=== PATIENT | female | born 1990 | race Caucasian/White ===

== ENCOUNTER → 2017-05-06 | Outpatient (CLI) | payer BC ==
[2017-05-06 14:38] LABS: URINE APPEARANCE CLEAR (CLEAR); URINE BILIRUBIN NEG (NEG); URINE COLOR YELLOW; URINE EPITHELIAL CELL AUTO >30 /lpf (0-5); URINE NITRITE NEG (NEG); URINE PH 7.5 (4.5-7.5); URINE SPECIFIC GRAVITY 1.021 (1.000-1.030); UROBILINOGEN NEG (NEG)
[2017-05-06 14:41] LABS: MANUAL MICROSCOPIC REQUIRED? NO; REVIEW REQ? NO
[2017-05-09 00:34] LABS: CHLAMYDIA TRACH RNA*** NOT DETECTED (NOT DETECTED); GC (NEIS GONORRHOEAE)RNA** NOT DETECTED (NOT DETECTED)
== END | disposition home or self-care (01) ==
LOC: C.LABSPEC 13:39
PROVIDERS: ATTEND Obstetrics & Gynecology
DX: Z34.81 Encounter for supervision of other normal pregnancy, first trimester (principal)

== ENCOUNTER → 2017-05-06 | Outpatient (CLI) | payer BC ==
[2017-05-06 12:19] LABS: BASO % 0.2 %; BASO ABS # 0.02 K/uL (0-0.2); COMPLETE YES; EOS % 3.5 %; HEMATOCRIT 37.4 % (37-47); IG% 0.3 %; LYMPH % 13.8 %; MEAN CELL VOLUME 83.5 fL (80-100); MEAN CORPUSCULAR HEMOGLOBIN 29.2 pg (25-34); MEAN PLATELET VOLUME 9.5 fL (7.4-10.4); MONO % 5.7 %; NEUT % 76.5 %; PLATELET COUNT 278 K/uL (130-400); RED BLOOD COUNT 4.48 M/uL (4.2-5.4); WHITE BLOOD COUNT 10.13 K/uL (4.8-10.8)
== END | disposition home or self-care (01) ==
LOC: C.LAB1850 10:44
PROVIDERS: ATTEND Obstetrics & Gynecology
DX: Z34.81 Encounter for supervision of other normal pregnancy, first trimester (principal)

== ENCOUNTER → 2017-09-20 | Outpatient (CLI) | payer BC ==
[2017-09-20 18:01] LABS: HEMATOCRIT 36.1 % (37-47); HEMOGLOBIN 12.3 g/dL (12.0-16.0)
[2017-09-20 18:26] LABS: ALBUMIN 2.6 gm/dl (3.4-5.0); ALT/SGPT 15 U/L (12-78); AST/SGOT 11 U/L (15-37); BLOOD UREA NITROGEN 6 mg/dl (7-18); CALCIUM 8.6 mg/dl (8.5-10.1); CARBON DIOXIDE 24 mmol/L (21-32); CREATININE 0.61 mg/dl (0.60-1.20); GLUCOSE 161 mg/dl (70-99); POTASSIUM 3.7 mmol/L (3.5-5.1); SODIUM 136 mmol/L (136-145)
[2017-09-20 18:31] LABS: ALKALINE PHOSPHATASE 88 U/L (45-117); TOTAL PROTEIN 6.9 gm/dl (6.4-8.2)
== END | disposition home or self-care (01) ==
LOC: C.LAB 17:09
PROVIDERS: ATTEND Obstetrics & Gynecology
DX: O26.13 Low weight gain in pregnancy, third trimester (principal); Z3A.00 Weeks of gestation of pregnancy not specified

== ENCOUNTER → 2017-09-28 | Outpatient (CLI) | payer BC | END | disposition home or self-care (01) | LOC: C.LAB 07:15 | PROVIDERS: ATTEND Obstetrics & Gynecology | DX: O28.1 Abnormal biochemical finding on antenatal screening of mother (principal); Z3A.00 Weeks of gestation of pregnancy not specified ==

== ENCOUNTER → 2017-11-12 | Outpatient (CLI) | payer BC | END | disposition home or self-care (01) | LOC: C.LABSPEC 17:29 | PROVIDERS: ATTEND Obstetrics & Gynecology | DX: Z34.83 Encounter for supervision of other normal pregnancy, third trimester (principal); Z3A.00 Weeks of gestation of pregnancy not specified ==

== ENCOUNTER 2017-12-06 23:07 | Inpatient (IN) | payer BC ==
[~2017-12-06] VITALS: Ht 160 cm; Wt 80.0 kg
[2017-12-06] MEDS ORDERED: LACTATED RINGER'S 1000ML 1,000 ML IV PRN (23:58)
[2017-12-06] MEDS ORDERED: LACTATED RINGER'S 1000ML 1,000 ML IV SCH (23:58)
[2017-12-07] MEDS ORDERED: FENTANYL CITRATE INJ 50 MCG/1 ML 2 ML VIAL ONE (00:20)
[2017-12-07] MEDS ORDERED: BUPIVACAINE 0.25% 30 ML VIAL ONE (00:20)
[2017-12-07] MEDS ORDERED: EpHEDrine SULFATE INJ 50 MG/ML AMP ONE (00:20)
[2017-12-07] MEDS ORDERED: FENTANYL 2MCG/ML ROPIV 1.25MG/ML 100ML BAG EPI ONE (00:21)
[2017-12-07 00:24] LABS: HEMATOCRIT 36.6 % (37-47); HEMOGLOBIN 12.9 g/dL (12.0-16.0); MEAN CELL VOLUME 84.1 fL (80-100); MEAN CORPUSCULAR HEMOGLOBIN 29.7 pg (25-34); MEAN CORPUSCULAR HGB CONC 35.2 g/dl (32-36); MEAN PLATELET VOLUME 9.3 fL (7.4-10.4); PLATELET COUNT 212 K/uL (130-400); RED CELL DISTRIBUTION WIDTH CV 13.5 % (11.5-14.5); RED CELL DISTRIBUTION WIDTH SD 40.6 fL (36.4-46.3); WHITE BLOOD COUNT 17.14 K/uL (4.8-10.8)
[2017-12-07] MEDS ORDERED: PATIENT'S ALLERGY INFO NEEDS ENTERED SCH (01:15)
[2017-12-07] MEDS ORDERED: NALOXONE HCL INJ 1 MG in SODIUM CHLORIDE 0.9% 1000ML 1,000 ML IV PRN (01:42)
[2017-12-07] MEDS ORDERED: LACTATED RINGER'S 1000ML 500 ML IV PRN (01:42)
[2017-12-07] MEDS ORDERED: DiphenhydrAMINE HCL 50 MG/ML VIAL IV PRN (01:45)
[2017-12-07] MEDS ORDERED: ONDANSETRON INJ 2 MG/ML 2 ML VIAL IV PRN (01:45)
[2017-12-07] MEDS ORDERED: NALBUPHINE HCL INJ 10 MG/ML AMP IV PRN (01:45)
[2017-12-07] MEDS ORDERED: NALOXONE HCL INJ 0.4 MG/1 ML VIAL/CARP IV PRN (01:45)
[2017-12-07] MEDS ORDERED: FENTANYL 2MCG/ML ROPIV 1.25MG/ML 100ML BAG EPI PRN (01:45)
[2017-12-07] MEDS ORDERED: EpHEDrine SULFATE INJ 50 MG/ML AMP IV PRN (01:45)
[2017-12-07 02:53] VITALS: Ht 160 cm; Wt 80.0 kg
[2017-12-07] MEDS ORDERED: PRENTAB26 PO (03:00)
[2017-12-07] MEDS ORDERED: CETI10TA84 PO (03:02)
[2017-12-07] MEDS ORDERED: MOME100A INH (03:04)
[2017-12-07] MEDS ORDERED: OXYTOCIN 30 UNITS/500ML NSS IV ONE (03:45)
[2017-12-07] MEDS ORDERED: ACETAMINOPHEN 325 MG TAB PO PRN (04:30)
[2017-12-07] MEDS ORDERED: ACETAMINOPHEN/CODEINE 300/30MG TAB PO PRN ×2 (04:30)
[2017-12-07] MEDS ORDERED: BENZOCAINE 20% AER SPR 82.5 GM CAN EXT PRN (04:30)
[2017-12-07] MEDS ORDERED: HYDROCORTISONE ACETATE 25 MG SUPP PR PRN (04:30)
[2017-12-07] MEDS ORDERED: OXYTOCIN 30 UNITS/500ML NSS IV PRN (04:30)
[2017-12-07] MEDS ORDERED: SUPERCREAM 0.870 % 15GM JAR EXT PRN (04:30)
[2017-12-07] MEDS ORDERED: LANOLIN OINT EXT PRN (04:30)
--- NOTE | 2017-12-07 04:44 | DELIVERY SUMMARY ---
DATE OF OPERATION: 12/07/2017 FINDINGS: Viable female with Apgars of 8 and 9. Baby delivered spontaneously over midline second degree laceration. Cord blood samples obtained. Placenta delivered spontaneously. Laceration repaired with 4-0 Vicryl in routine fashion. Estimated blood loss 300 mL. LABOR NOTE: The patient is a 27-year-old 2, para 1 with an EDC of 12/09/2017 at 39+ weeks gestational age who was admitted with complaints of contractions. The patient states that the contractions began approximately 1800 hours on the 06 of December. She did not have rupture of membranes or vaginal bleeding. course was remarkable for poor weight gain in the . She gained only 9 pounds for the . Growth scan at 32 weeks showed an estimated weight at 21st percentile. Lab values for the showed blood type of A+, antibody negative, rubella immune, hepatitis B negative. She declined cell free DNA testing as well as maternal serum AFP. She had an elevated 1-hour Glucola at 28 weeks with a normal 2-hour glucose tolerance test. She had a negative third trimester beta strep culture. Upon admission, the patient was thought to be 5 cm dilated, 90% effaced and -2 station. Tracing was category 1. Anesthesia was consulted and an epidural was placed. Following placement of the epidural, the patient had artificial rupture of membranes for clear fluid. Over the next several hours, the patient progressed to full dilatation and began her second state. She pushed for less than 30 minutes delivering the viable female infant. Cord was clamped and cut. Cord blood sample was obtained. Placenta was delivered spontaneously. Midline laceration was repaired with 4-0 Vicryl in routine fashion. Estimated blood loss 300 mL. Sponge and needle count was correct. I attest to the content of the Intraoperative Record and any orders documented therein. Any exception s are noted below.
--- NOTE | 2017-12-07 05:53 | Anesthesia Procedure Note ---
Anesthesia Epidural Removal Nt Date & Time Dec 07, 2017 at 05:53 Vital Signs Pain Intensity: 0.0 Notes Mental Status: alert / awake / arousable, participated in evaluation Nausea / Vomiting: adequately controlled Pain: adequately controlled Airway Patency, RR, SpO2: stable & adequate BP & HR: stable & adequate Hydration State: stable & adequate Neuraxial Anesthesia: was administered Anesthetic Complications: no major complications apparent, pt satisfied with anesthetic care Epidural: removed without complications, with tip intact
[2017-12-07] MEDS ORDERED: HYDROCORTISONE 2.5% CR 30 GM TUBE EXT PRN (07:30)
--- NOTE | 2017-12-07 08:09 | Progress Note ---
Subjective Dec 07, 2017. Subjective conversation w/ patient, physical exam Ambulation: limited ambulation Voiding: no voiding problems Passing Gas: No Diet Tolerance: Regular Diet Lochia: Small (Patient unsure of lochia, states looking at blood makes her pass out; does not report saturation of pads yet) Feeding Type: Breast Feeding Pain: Cramping at this time Comment: Patient delivered early this AM, has since reported rash on back from where anesthesia tape was applied Review of Systems ROS grossly normal aside from itching rash across back. Objective Physical Exam General Appearance: NO APPARENT DISTRESS Respiratory/Chest: lungs clear, normal breath sounds, + pertinent finding ( petechial rash in square and rectangular pattern on back of patient. allergic dermatitis in appearance. No raised wheals, not warm to touch, no blanching. Confluent flat, reddened area on upper left back measuring approximately 3 cm wide x 10 cm long. Epidural site unaffected.) Cardiovascular: regular rate, rhythm, no edema, no murmur Abdomen: non tender, soft Fundus: Firm, Non-Tender, Relation to Umbilicus (1-2 below) Extremities: normal range of motion, non-tender, normal inspection, no pedal edema, no calf tenderness Laboratory Results Last 24 Hours Test 12/07/17 00:10 White Blood Count 17.14 K/uL Red Blood Count 4.35 M/uL Hemoglobin 12.9 g/dL Hematocrit 36.6 % Mean Corpuscular Volume 84.1 fL Mean Corpuscular Hemoglobin 29.7 pg Mean Corpuscular Hemoglobin Concent 35.2 g/dl RDW Standard Deviation 40.6 fL RDW Coefficient of Variation 13.5 % Platelet Count 212 K/uL Mean Platelet Volume 9.3 fL Medications Current Inpatient Medications Medications (Trade) Dose Ordered Sig/Valeriano Route Start Time Stop Time Status Last Admin Dose Admin Lactated Ringer's 1,000 ml @ 125 mls/hr Q8H IV 12/06/17 23:58 12/08/17 23:57 12/07/17 01:31 125 MLS/HR Lactated Ringer's 1,000 ml @ 999 mls/hr Q1H1M PRN IV 12/06/17 23:58 01/05/18 23:57 12/07/17 01:11 999 MLS/HR Oxytocin (Pitocin IV) 30 units UD PRN IV 12/07/17 04:30 01/06/18 04:29 Benzocaine (Dermoplast Aero Spr) 1 appln PRN PRN EXT 12/07/17 04:30 01/06/18 04:29 Cocaine HCl (Supercream 0.870% Cr) BID PRN EXT 12/07/17 04:30 12/21/17 04:29 Hydrocortisone Acetate (Anusol Hc Supp) 25 mg BID PRN OR 12/07/17 04:30 01/06/18 04:29 Lanolin (Lanolin Oint) PRN PRN EXT 12/07/17 04:30 01/06/18 04:29 Prenat Multivit/ Tow Truck Operator/Iron/Folic Ac ( Vitamin Tab) 1 tab DAILY PO 12/07/17 08:00 01/06/18 07:59 Ibuprofen (Motrin Tab) 600 mg Q4H PRN PO 12/07/17 04:30 01/06/18 04:29 Acetaminophen (Tylenol Tab) 650 mg Q6H PRN PO 12/07/17 04:30 01/06/18 04:29 Acetaminophen/ Codeine Phosphate (Tylenol w/ Codeine #3 Tab) 1 tab Q4H PRN PO 12/07/17 04:30 01/06/18 04:29 Acetaminophen/ Codeine Phosphate (Tylenol w/ Codeine #3 Tab) 2 tab Q4H PRN PO 12/07/17 04:30 01/06/18 04:29 Bisacodyl (Dulcolax Tab) 5 mg 20 PO 12/08/17 20:00 12/08/17 20:01 Docusate Sodium (coLACE CAP) 100 mg BID PO 12/07/17 08:00 01/06/18 07:59 Diphtheria/ Pertussis/Tetanus Vacc (Adacel Inj) 0.5 ml ONCE ONCE IM. 12/08/17 09:00 12/08/17 09:01 Ferrous Sulfate (Feosol Tab) 325 mg DAILY PO 12/07/17 08:00 01/06/18 07:59 Hydrocortisone (Hydrocortisone 2.5% Crm) 1 appln QID PRN EXT 12/07/17 07:30 01/06/18 07:29 Assessment and Plan Post- Day#: 0 Continue Routine Care: 27 yo F PPD 1 s/p Pt doing well clinically aside from allergic reaction to tape on back Hydrocortisone cream 2.5% qid for itching. Continue to monitor. Continue routine care Resident Physician Supervision Note: I interviewed and examined the patient. Discussed with Dr. Ortega and agree with findings and plan as documented in the note. Any exceptions or clarifications are listed here: Tape reaction from epidural, topical hydrocortisone Documented By: Byron Klein Resident Tracking Resident Involvement: Resident Care Provided Care Provided: OB Delivery
[2017-12-07 08:15] VITALS: BP 120/82; PULSE 90; TEMP 36.6
[2017-12-07] MEDS: PRENATAL VITAMIN TAB PO SCH (08:18)
[2017-12-07] MEDS: FERROUS SULFATE 325 MG TAB PO SCH (08:18)
[2017-12-07] MEDS: DOCUSATE SODIUM 100 MG CAP PO SCH ×2 (08:18→19:57)
[2017-12-07 12:01] VITALS: BP 112/73; PULSE 96; TEMP 36.6
[2017-12-07] MEDS: IBUPROFEN 600 MG TAB PO PRN ×2 (14:02→19:56)
--- NOTE | 2017-12-07 14:54 | Discharge Instructions ---
Discharge Instructions Date of Service Dec 07, 2017. Admission Reason for Admission: Supervision Of Normal Intrauterine Discharge Discharge Diagnosis / Problem: recovery from normal delivery Discharge Goals Goal(s): Routine recovery after delivery Medications Continue Dispensed Medications: supercream, dermaplast, tucks, lansinoh Activity Recommendations Activity Limitations: per Instructions/Follow-up section . Instructions / Follow-Up Instructions / Follow-Up ACTIVITY RECOMMENDATIONS: * Gradual return to full activity over the next 2-3 weeks. * No lifting - nothing heavier than baby over the next 2-3 weeks. * Do not engage in vigorous exercise, sexual activity or sports until cleared by your physician. * Do not drive or operate any motorized equipment until cleared by your physician. * You may shower/bathe daily. MEDICATIONS: For discomfort or pain, you may use Acetaminophen (Tylenol), Ibuprofen (Advil), or Naproxen (Aleve) following the package directions. For constipation you may use Colace following the package directions. BREAST CARE: If you are not breast feeding: * Wear a supportive bra 24 hours a day for one to two weeks. * Avoid stimulating your breasts and nipples as much as possible during the first few weeks after delivery. * When taking a shower, have the warm water hit your back, not breasts. * When your breasts feel full, apply ice packs. Usually three to four times a day helps ease the discomfort. * Take a mild pain medication (Tylenol / Motrin) when you are uncomfortable. If breast feeding: * Use breast milk to lubricate nipples. Lansinoh cream may be used for sore nipples. You do not need to remove cream prior to breast feeding. If using a different brand of cream, check the label for directions regarding removal of cream prior to nursing. * Wear a supportive bra. * If having problems with breasts or breast feeding, call a incident response consultant or your health care provider. EPISIOTOMY CARE: After delivery, if you have an episiotomy (stitches), the following steps will ease discomfort and aid healing. * For the first 24 hours after delivery, place ice packs next to your episiotomy to help reduce swelling. * After the first 24 hour-period, sitz baths, either portable or in the tub, are suggested. A shower with a shower arm sprayed over the episiotomy may be comforting. * Emy care should be done after each voiding and bowel movement. Squirt warm water from a plastic bottle over the perineum (region of the body between the anus and urinary opening) and pat dry. * Use Dermoplast to ease discomfort. Shake container. [place] directly over the episiotomy. Place a Tucks on a clean sanitary pad next to your episiotomy. SPECIAL CARE INSTRUCTIONS: When you are discharged from the hospital, it is important for you to follow the instructions listed below: * During the first week at home, you should be able to care for yourself and your baby. In addition, the usual light household activities are encouraged. * Limit your activities to the way you feel. Do not try to clean the house or move furniture. Be sensible. * If you actively engage in sports and have done so up until the time of your delivery, you may resume these activities as soon as you feel able. This may take up to one month or even longer. Use good judgment. * Continue to take your vitamins for at least six weeks after the of your baby. * Your diet need not be limited unless you were on a special diet before your delivery. Breast-feeding mothers need around 2500 calories per day and at least 64-80 ounces of fluid per day (8 to 10 glasses). * You should eat foods from the four major food groups. Crash diets or fad diets are to be avoided. Eating lean meats, fresh fruits and vegetables, low-fat dairy products, high fiber foods and a regular exercise program, will help you get back to your pre- weight without putting your health at risk. * Constipation is sometimes a problem after delivery. Take a mild laxative as needed. If breast feeding, Milk of Magnesia is acceptable to use. You may use a suppository or Fleets enema if no episiotomy. * A daily shower or tub bath is suggested. Be sure to thoroughly and gently dry the perineum. * A bloody vaginal discharge will usually continue until around four weeks post . A small amount of bleeding may continue for as long as six weeks. Vaginal discharge changes from the bright red bleeding after delivery to pink then brownish and finally yellowish-pink before becoming white and disappearing. * Bleeding may increase with activity. Your first period may come in 4-8 weeks. If you are breast feeding, your period may be delayed even longer. * [place] (sex) can begin whenever both you and your partner feel comfortable and do not have any form of genital infection. It is recommended that you wait at least six weeks for internal and external healing to occur. If you have questions, please talk to your health care practitioner. A condom should be used to prevent infection and . * Foreplay, gentle intercourse and lubrication is very important the first several times to prevent pain. A water-based lubricant such as K-Y jelly or Astroglide may be used. * If you have RH negative blood and your baby is RH positive, you will receive RHOGAM by injection prior to discharge. The nurse will give you a card to keep with you that has the date and place that you received RHOGAM after delivery. * During your care, you had a Rubella screen done to check for the presence of rubella antibodies in your blood. If your test was negative, you will receive a Rubella vaccine prior to discharge. This vaccine may cause a fever, soreness at the injection site and flu-like symptoms. If these symptoms persist, notify your health care practitioner. is not advised for one month after a Rubella vaccine. * Verbalizes understanding of car seat law as reviewed with patient nursing. * Car Seat hand-out given and reviewed with patient by nursing. * Shaken baby information reviewed with patient by nursing. Call you doctor if: * Heavy bleeding (saturating several pads an hour) or passing clots the size of your fist. * A fever >101 degrees F (38.3 degrees C) on two occasions four hours apart and /or chills. * Unusual pain in the pelvic or vaginal areas. * "Baby Blues" lasting longer than two weeks. If you have any questions or concerns, call your health care practitioner at . FOLLOW UP VISIT: * Please call the office at to schedule a 6 week examination. It is important you keep this appointment. It is important for you to make arrangements for either yearly or twice yearly check-ups thereafter. Current Hospital Diet Patient's current hospital diet: Regular OB Diet Discharge Diet Recommended Diet: Regular OB Diet Pending Studies Studies pending at discharge: no Medical Emergencies . Who to Call and When: Medical Emergencies: If at any time you feel your situation is an emergency, please call 911 immediately. . Non-Emergent Contact Non-Emergency issues call your: Electrical Subcontractor . . "Provider Documentation" section prepared by Pricila Hi. .
[2017-12-07 16:38] VITALS: BP 115/69; PULSE 82; TEMP 36.6
[2017-12-07 19:45] VITALS: BP 125/84; PULSE 87; TEMP 36.7; O2SAT 96
[2017-12-07 23:10] VITALS: BP 100/58; PULSE 77; TEMP 36.8; O2SAT 97
[2017-12-08 03:40] VITALS: BP 116/81; PULSE 93; TEMP 36.4; O2SAT 97
[2017-12-08] MEDS: IBUPROFEN 600 MG TAB PO PRN (03:43)
[2017-12-08 05:33] LABS: HEMOGLOBIN 11.6 g/dL (12.0-16.0)
[2017-12-08 07:50] VITALS: BP 119/89; PULSE 85; TEMP 36.4
[2017-12-08] MEDS: PRENATAL VITAMIN TAB PO SCH (08:35)
[2017-12-08] MEDS: FERROUS SULFATE 325 MG TAB PO SCH (08:35)
[2017-12-08] MEDS: DOCUSATE SODIUM 100 MG CAP PO SCH (08:35)
--- NOTE | 2017-12-08 08:45 | Progress Note ---
Subjective Dec 08, 2017. Subjective conversation w/ patient, physical exam Ambulation: ambulating normally Voiding: no voiding problems Passing Gas: Yes Diet Tolerance: Regular Diet Lochia: Small Feeding Type: Breast Feeding Comment: She had rash that was sore where tape was placed for epidural. now resolving with steroid cream Review of Systems Constitutional: No fever, No chills, No sweats, No weight loss, No weakness, No fatigue, No problem reported Breast: No see HPI, No breast lump, No change in shape, No nipple discharge, No breast pain, No problem reported Abdomen: No pain, No nausea, No vomiting, No diarrhea, No constipation, No GI bleeding, No problem reported Female : No see HPI, No dysuria, No urinary frequency, No hematuria, No incontinence, No abnormal vaginal bleeding, No vaginal discharge, No problem reported Objective Vital Signs Date Time Temp Pulse Resp B/P (MAP) Pulse Ox O2 Delivery O2 Flow Rate FiO2 12/08/17 07:52 Room Air 12/08/17 07:50 36.4 85 16 119/89 (99) Room Air 12/08/17 03:40 36.4 93 20 116/81 (93) 97 Room Air 12/07/17 23:10 36.8 77 16 100/58 (72) 97 Room Air 12/07/17 23:10 97 Room Air 12/07/17 19:45 36.7 87 18 125/84 (98) 96 Room Air 12/07/17 16:38 36.6 82 16 115/69 (84) Room Air 12/07/17 16:38 Room Air 12/07/17 12:04 Room Air 12/07/17 12:01 36.6 96 16 112/73 (86) Room Air Physical Exam General Appearance: WELL-APPEARING, NO APPARENT DISTRESS Abdomen: non tender, soft Fundus: Firm, Non-Tender, Relation to Umbilicus (2 below U) Extremities: no calf tenderness Laboratory Results Last 24 Hours Test 12/08/17 05:11 Hemoglobin 11.6 g/dL Hematocrit 34.0 % Assessment and Plan Post- Day#: 1 Continue Routine Care: stable course would like to go home if baby discharged. discharge to home follow up in 6 weeks
[2017-12-08] MEDS ORDERED: DIPHTHERIA/TETANUS/PERTUSSIS 0.5 ML SYR/VIAL IM. ONE (09:00)
[2017-12-08] MEDS ORDERED: BISACODYL 5 MG TABEC PO SCH (20:00)
== END 2017-12-08 10:16 | disposition home or self-care (01) | DRG 775 ==
LOC: C.OPB 23:07 → C.LD 23:07 → C.OPB 12-07 00:02 → C.MS4N 12-07 06:58
PROVIDERS: ADMIT Obstetrics & Gynecology; ATTEND Obstetrics & Gynecology
PROC: 0KQM0ZZ Repair Perineum Muscle, Open Approach (ICD-10-PCS; principal; 2017-12-07)
PROC: 10E0XZZ Delivery of Products of Conception, External Approach (ICD-10-PCS; principal; 2017-12-07)
DX: O36.5930 Maternal care for other known or suspected poor fetal growth, third trimester, not applicable or unspecified (principal); O26.13 Low weight gain in pregnancy, third trimester; O70.1 Second degree perineal laceration during delivery; O9A.23 Injury, poisoning and certain other consequences of external causes complicating the puerperium; T78.49XA Other allergy, initial encounter; Z3A.39 39 weeks gestation of pregnancy; Z37.0 Single live birth

== ENCOUNTER 2019-09-08 02:25 | Inpatient (IN) ==
[2019-09-08] MEDS ORDERED: OXYTOCIN 30 UNITS/500 ML BAG IV PRN ×2 (03:02→08:24)
[2019-09-08] MEDS: LACTATED RINGER'S 1,000 ML IV PRN ×2 (03:30→04:50)
[2019-09-08 03:31] LABS: Mean Corpuscular Hemoglobin 29.3 pg (25-34); Mean Corpuscular Volume 85.6 fL (80-100); Mean Platelet Volume 8.7 fL (7.4-10.4); Platelet Count 193 K/uL (130-400); RDW Coefficient of Variation 13.5 % (11.5-14.5); RDW Standard Deviation 41.9 fL (36.4-46.3); Red Blood Count 4.44 M/uL (4.2-5.4); White Blood Count 15.57 K/uL (4.8-10.8)
[2019-09-08] MEDS ORDERED: ePHEDrine sulfate 50 MG/ML AMP ONE (03:37)
[2019-09-08] MEDS ORDERED: fentaNYL citrate 100 MCG/2 ML VIAL ONE (03:37)
[2019-09-08] MEDS ORDERED: BUPIVACAINE 0.25% 30 ML VIAL ONE (03:37)
[2019-09-08 03:38] LABS: Mean Corpuscular Hgb Conc 34.2 g/dL (32-36)
[2019-09-08] MEDS ORDERED: fentaNYL 2MCG/ML ROPIV 1.25MG/ML 100 ML BAG EPI ONE (03:38)
--- NOTE | 2019-09-08 03:55 | Anesthesiology Consultation ---
Date of Service September 08, 2019 Assessment & Plan Chart Review Chart Review: Acceptable Risk for Surgery, Patient NOT seen in Pre Admission Testing and Acceptable Risk for Labor Epidural Consults Requested none ASA ASA2 Proposed Anesthesia Anesthesia Type: General, Labor Epidural and CSE Risk / Benefits Reviewed With: PT / POA / Parent / Guardian, Accepts Plan and Informed Consent Obtained History Height/Weight Height: 5 ft 3 in Weight: 85.275 kg Allergies Allergy/AdvReac Type Severity Reaction Status Date / Time amoxicillin Allergy Severe HIVES Verified 09/07/19 15:27 Medications Home Medications Medication Instructions Recorded Confirmed Last Taken albuterol sulfate 90 mcg/actuation 1 puff INHALATION DIRECTED gm 04/07/19 09/08/19 Unknown aerosol inhaler prenat.vits,sarthak,[id number] 1 tab PO DAILY 04/07/19 09/08/19 09/06/19 20:00 fexofenadine-pseudoephedrine 1 tab PO Q12H PRN 09/06/19 09/08/19 09/06/19 20:00 Active Medications Generic Name Dose Route Start Last Admin Trade Name Freq PRN Reason Stop Dose Admin Lactated Ringer's 1,000 mls @ 125 mls/hr 09/08/19 03:02 09/08/19 03:30 Lr IV 09/10/19 03:01 999 mls/hr .Q8H PRN Administration L&D Protocol Protocol NPO Date Last Intake of Fluids: 09/08/19 Time Last Intake of Fluids: 03:00 Date Last Intake of Solids: 09/07/19 Time Last Intake of Solids: 19:00 Past Medical History Medical History (Updated 09/08/19 @ 03:54 by Jayson Price MD) GERD (gastroesophageal reflux disease) History of asthma inhaler PRN History of varicella Spontaneous vaginal delivery 05/2016 [facility] [place] and 11/2017 [facility] Uncontrolled mild persistent asthma (Chronic) Exercise / Class Metabolic Activity II 4-5 Yardwork/Stairs/Walk up hill Past Family History Family History Grandmother (Maternal) Breast cancer Father Diabetes Hypertension Grandfather (Paternal) Diabetes Brother Factor V Leiden mutation Past Surgical History Surgical History S/P appendectomy 09/2010 Past Anesthesia History No Hx of Anesthesia Complications and No Family Hx of Anesthesia Complications History of PONV No Hx of PONV and No Hx of Motion Sickness Social History Smoking Status: Never smoker Hx Alcohol Use: No Hx Substance Use: No Physical Exam Vital Signs Last Vital Signs Temp 36.5 C 09/08/19 02:43 Pulse 98 H 09/08/19 03:47 Resp 18 09/08/19 02:43 BP 130/81 09/08/19 02:42 Pulse Ox 97 09/08/19 03:47 Constitutional + obese ENMT Mouth: no dentition abnormality Thyromental Distance: > or= 3.5 Finger Breadths Mallampati Class: II Neck normal visual inspection and trachea midline; neck extension not limited Respiratory normal respiratory effort Auscultation: lungs clear to auscultation bilaterally Cardiovascular Rate/Rhythm: regular rate and regular rhythm Heart Sounds: no murmur Vessels: no carotid bruit Musculoskeletal Spine: lumbar spine normal to inspection; normal cervical ROM Extremities: full ROM of extremities Neurologic moves all extremities Motor/Sensory: no sensory deficit Psychiatric Orientation: alert and oriented x 3 Testing Laboratory Results 09/08/19 03:21
[2019-09-08] MEDS ORDERED: NALOXONE HCL 1 MG in SODIUM CHLORIDE 0.9% 1000ML 1,000 ML IV PRN (04:21)
[2019-09-08] MEDS ORDERED: NALBUPHINE HCL INJ 10 MG/ML AMP IV PRN (04:21)
[2019-09-08] MEDS ORDERED: ePHEDrine sulfate 50 MG/ML AMP IV PRN (04:21)
[2019-09-08] MEDS ORDERED: ONDANSETRON INJ 2 MG/ML 2 ML VIAL IV PRN (04:21)
[2019-09-08] MEDS ORDERED: DiphenhydrAMINE HCL 50 MG/ML VIAL IV PRN (04:21)
[2019-09-08] MEDS ORDERED: NALOXONE HCL 0.4 MG/1 ML VIAL/CARP IV PRN (04:21)
[2019-09-08] MEDS ORDERED: PROMETHAZINE HCL 25 MG in SODIUM CHLORIDE 0.9% 50 ML IV PRN (04:21)
[2019-09-08] MEDS ORDERED: fentaNYL 2MCG/ML ROPIV 1.25MG/ML 100 ML BAG EPI PRN (04:21)
--- NOTE | 2019-09-08 06:41 | History & Physical Report ---
Date of Service September 08, 2019 Assessment & Plan (1) Normal labor: Admit, epidural, AROM. History of Present Illness Primary Care Provider: NO PCP Multip presents in labor GBS neg. Requested epidural. Allergies Allergy/AdvReac Type Severity Reaction Status Date / Time amoxicillin Allergy Severe HIVES Verified 09/07/19 15:27 Home Medications Home Medications Medication Instructions Recorded Confirmed Type albuterol sulfate 90 mcg/actuation 1 puff INHALATION DIRECTED gm 04/07/19 09/08/19 History aerosol inhaler prenat.vits,sarthak,[id number] 1 tab PO DAILY 04/07/19 09/08/19 History fexofenadine-pseudoephedrine 1 tab PO Q12H PRN 09/06/19 09/08/19 History Patient History Medical History (Updated 09/08/19 @ 06:41 by Clinton Irvin MD, FACOG) GERD (gastroesophageal reflux disease) History of asthma inhaler PRN History of varicella Spontaneous vaginal delivery 05/2016 [facility] [place] and 11/2017 [facility] Uncontrolled mild persistent asthma (Chronic) Surgical History S/P appendectomy 09/2010 Family History Grandmother (Maternal) Breast cancer Father Diabetes Hypertension Grandfather (Paternal) Diabetes Brother Factor V Leiden mutation Social History (Updated 04/14/19 @ 08:01 by Kristie Lynne) Preferred Language: Macedonian Communication Ability: Effective Beliefs That Will Affect Care: None marital status: Current Living Situation: Spouse and Family Other Information That Helps Us Care for You: No Feels Safe at Home: Yes Safety Concerns: Feels Safe At This Time Smoking Status: Never smoker Hx Alcohol Use: No Hx Substance Use: No Physical Exam Constitutional: WD/WN, vitals as above Respiratory: normal respiratory effort, lungs clear to auscultation Cardiovascular: RRR, no murmur, no edema Genitourinary: Manual OB Exam: + cervical dilation 8 cm, + cervical effacement 90%, + station 0 and + amniotic fluid (AROM) OB Exam Monitor Tracing: + external FHT monitor used Results & Data Vital Signs (Past 12 Hours) Vital Signs Temp Pulse Resp BP Pulse Ox 09/08/19 06:37 108 H 97 09/08/19 06:32 98 H 94 09/08/19 06:31 103 H 94 09/08/19 06:28 103 H 113/82 09/08/19 06:27 97 H 94 09/08/19 06:24 96 H 94 09/08/19 06:22 99 H 97 09/08/19 06:17 98 H 95 09/08/19 06:14 102 H 117/79 09/08/19 06:12 138 H 97 09/08/19 06:07 104 H 97 09/08/19 06:02 95 H 96 09/08/19 06:01 18 09/08/19 05:59 95 H 116/72 09/08/19 05:58 96 H 113/75 09/08/19 05:57 95 H 95 09/08/19 05:54 83 94 09/08/19 05:52 89 96 09/08/19 05:48 87 94 09/08/19 05:47 86 95 09/08/19 05:44 86 109/66 09/08/19 05:42 89 95 09/08/19 05:37 85 95 09/08/19 05:32 86 95 09/08/19 05:28 90 105/68 94 09/08/19 05:27 89 95 09/08/19 05:22 76 94 09/08/19 05:18 88 93 09/08/19 05:17 89 95 09/08/19 05:14 85 104/65 09/08/19 05:12 82 95 09/08/19 05:07 78 95 09/08/19 05:06 87 94 09/08/19 05:02 89 93 09/08/19 05:00 86 18 94 09/08/19 04:59 84 107/65 09/08/19 04:57 82 95 09/08/19 04:52 86 91 09/08/19 04:47 88 96 09/08/19 04:43 82 104/67 09/08/19 04:42 83 96 09/08/19 04:37 81 96 09/08/19 04:34 18 09/08/19 04:32 92 H 96 09/08/19 04:29 18 09/08/19 04:27 96 H 108/70 97 09/08/19 04:25 93 H 102/61 09/08/19 04:24 97.9 F 18 09/08/19 04:23 94 H 99/57 L 09/08/19 04:22 88 98 09/08/19 04:21 97 H 104/57 L 09/08/19 04:19 96 H 18 109/55 L 09/08/19 04:17 101 H 133/74 98 09/08/19 04:12 99 H 97 09/08/19 04:07 104 H 98 09/08/19 04:02 99 H 98 09/08/19 03:57 106 H 98 09/08/19 03:52 99 H 98 09/08/19 03:47 98 H 97 09/08/19 02:43 97.7 F 18 09/08/19 02:42 102 H 130/81
--- NOTE | 2019-09-08 07:43 | Delivery Summary ---
Vaginal Delivery Summary Date of Service September 08, 2019 Spontaneous vaginal delivery in occiput anterior position the patient did have an epidural and heart rate was category 1 she pushed over a grand total of 2 contractions delivering a baby with clear fluid no nuchal cord mouth and nares suctioned with bulb baby delivered by gentle traction no excessive force used live vigorous male infant cord clamped and cut cord gases obtained not obtained cord blood obtained placenta removed with traction IV Pitocin started uterine to ne improved second-degree tear repaired with 3-0 Vicryl sponge and instrument counts correct rectal exam negative for sutures or defects estimated blood loss 150 mL
[2019-09-08] MEDS ORDERED: PRENATAL VITAMIN 1 TAB PO SCH (08:24)
[2019-09-08] MEDS ORDERED: DIPHTHERIA/TETANUS/PERTUSSIS 0.5 ML SYR/VIAL IM ONE (08:24)
[2019-09-08] MEDS ORDERED: ALBUTEROL HFA 8 GM INHALER INH PRN (08:24)
[2019-09-08] MEDS ORDERED: ACETAMINOPHEN 325 MG TAB PO PRN (08:24)
[2019-09-08] MEDS ORDERED: OXYCODONE/ACETAMINOPHEN 5mg/325mg TAB PO PRN (08:24)
[2019-09-08] MEDS ORDERED: HYDROCORTISONE ACETATE 25 MG SUPP PR PRN (08:24)
[2019-09-08] MEDS ORDERED: SUPERCREAM 0.870% 15 GM JAR EXT PRN (08:24)
[2019-09-08] MEDS ORDERED: FEXOFENADINE 60MG/PSEUDOEPHEDRINE 120MG TAB PO PRN (08:24)
[2019-09-08] MEDS ORDERED: BENZOCAINE 20% AER SPR 82.5 GM CAN EXT PRN (08:24)
[2019-09-08] MEDS ORDERED: PRENAT VITS CAL MIN IRON FOLIC PO SCH (09:00)
--- NOTE | 2019-09-08 09:21 | Anesthesia Procedure Note ---
Date of Service September 08, 2019 Anesthesia Post Epidural Note Vital Signs Vital Signs: Temp Pulse Resp BP Pulse Ox 36.7 C 90 18 105/55 L 94 09/08/19 06:37 09/08/19 09:13 09/08/19 06:37 09/08/19 09:13 09/08/19 07:28 Notes Mental Status: alert / awake / arousable and participated in evaluation Nausea / Vomiting: adequately controlled Pain: adequately controlled Airway Patency, RR, SpO2: stable & adequate BP & HR: stable & adequate Hydration State: stable & adequate Neuraxial Anesthesia: was administered and sensory block is resolving Anesthetic Complications: no major complications apparent and Pt Satisfied with anesthetic care Epidural: Removed without complications and With tip intact
[2019-09-08] MEDS ORDERED: HYDROCORTISONE 1% OINT 30 GM TUBE EXT PRN (14:19)
[2019-09-08] MEDS: IBUPROFEN 600 MG TAB PO PRN ×2 (15:36→20:22)
[2019-09-08] MEDS: DOCUSATE SODIUM 100 MG CAP PO SCH (20:22)
[2019-09-09 06:32] LABS: Hemoglobin 11.2 g/dL (12.0-16.0); Mean Corpuscular Hemoglobin 28.8 pg (25-34); Mean Corpuscular Hgb Conc 32.9 g/dL (32-36); Mean Corpuscular Volume 87.4 fL (80-100); Platelet Count 178 K/uL (130-400); RDW Coefficient of Variation 13.8 % (11.5-14.5); RDW Standard Deviation 44.2 fL (36.4-46.3); Red Blood Count 3.89 M/uL (4.2-5.4); White Blood Count 15.79 K/uL (4.8-10.8)
[2019-09-09] MEDS: IBUPROFEN 600 MG TAB PO PRN ×2 (06:44→11:48)
--- NOTE | 2019-09-09 08:16 | Obstetrical Progress Note ---
Date of Service September 09, 2019 Assessment & Plan (1) Normal vaginal delivery: Doing well. Plan d/c later today. Instructions reviewed. (2) Coccyx pain: will get xr. Understands that I will not know what to do with that and results will need to go to PT. Day #:: 1 Subjective Ambulation: ambulating normally Voiding: no voiding problems Passing Gas:: Yes Diet Tolerance:: regular diet Lochia:: Small Feeding Type:: breast feeding Patient notes she is doing well. she is requesting an xray of her tailbone per request of PT because of her ongoing pain. that is bothering her most. Physical Exam Constitutional WD/WN, vitals as above Cardiovascular Extremities: no calf tenderness and no edema Gastrointestinal (Abdomen) fundus firm, nt at u Psychiatric A+Ox3, euthymic affect Results & Data Vital Signs (Past 12 Hours) Vital Signs Temp Pulse Resp BP Pulse Ox 09/09/19 07:30 36.4 C L 81 20 103/69 09/09/19 03:00 36.5 C 85 18 115/76 97 09/09/19 00:20 36.4 C L 80 18 115/75 98 09/08/19 20:15 36.5 C 80 18 107/71
[2019-09-09] MEDS: DOCUSATE SODIUM 100 MG CAP PO SCH (09:16)
--- NOTE | 2019-09-09 09:39 | XRay Report ---
SACRUM AND COCCYX 3 VIEWS CLINICAL HISTORY: coccygeal pain. FINDINGS: 3 views of the sacrum and coccyx are obtained. No prior studies are available for compariso n at the time of dictation. The skeletal structures are well mineralized. There is no radiographic ev idence of sacrococcygeal fracture. Sclerotic degenerative change is noted in the sacroiliac joints an d pubic symphysis. The hip joints are normal as visualized. A soft tissue density in the pelvis likel y represents the post gravid uterus. There is no bowel obstruction. Fecal retention is noted in the c olon. IMPRESSION: 1. No acute bony abnormality is identified. 2. 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 Electronically signed by: Stiven Gonzalez M.D. 09/09/2019 9:38 AM
[2019-09-09] MEDS ORDERED: bisacodyL 5 MG TABEC PO SCH (20:00)
[2019-09-10] MEDS ORDERED: bisacodyL 10 MG SUPP PR PRN (08:00)
== END 2019-09-09 18:55 | disposition home or self-care (01) | DRG 807 ==
LOC: OPB 02:25 → 4S1 02:28 → 4S2 10:44